=== PATIENT | female | born 1985 | race Caucasian/White ===

== ENCOUNTER 2021-06-01 20:34 | Outpatient (CLI) | payer BC | END 2021-06-01 22:42 | disposition home or self-care (01) | LOC: GENOP 20:34 | DX: O26.893 Other specified pregnancy related conditions, third trimester (principal); M54.9 Dorsalgia, unspecified; R53.83 Other fatigue; Z3A.37 37 weeks gestation of pregnancy; Z20.822 Contact with and (suspected) exposure to COVID-19 | CPT/HCPCS: 59025; 81001; 96360; 96361; U0002 ==

== ENCOUNTER → 2021-06-05 | Outpatient (CLI) | payer BC ==
[~2021-06-05] MED LIST: COLACE 100MG C100 MG PO; COLACE100 MG PO; HYDROCODON-ACE1 EAC6 PO; IBUPROFEN600 MG PO; PRENATAL VITAM1 EAC3 PO
== END ==
LOC: GENOP 22:43
DX: O36.8130 Decreased fetal movements, third trimester, not applicable or unspecified (principal); Z3A.37 37 weeks gestation of pregnancy
CPT/HCPCS: 59025

== ENCOUNTER 2021-06-14 13:11 | Outpatient (CLI) | payer BC ==
[2021-06-14 14:27] LABS: HEMOGLOBIN 12.5 gm/dl (12.3-15.3); RED BLOOD COUNT 4.1 M/UL (4.00-5.10)
[2021-06-15] MEDS ORDERED: PRENATAL VITAM1 EAC3 PO (11:29)
[2021-06-15] MEDS ORDERED: COLACE100 MG PO (11:30)
[2021-06-15] MEDS ORDERED: IBUPROFEN600 MG PO (13:13)
[2021-06-15] MEDS ORDERED: COLACE 100MG C100 MG PO (13:13)
[2021-06-15] MEDS ORDERED: HYDROCODON-ACE1 EAC6 PO (13:13)
== END 2021-06-14 15:22 | disposition home or self-care (01) ==
LOC: GENOP 13:11
PROVIDERS: Obstetrics & Gynecology
DX: Z01.812 Encounter for preprocedural laboratory examination (principal)
CPT/HCPCS: 36415; 81001; 85025

== ENCOUNTER 2021-06-15 07:30 | Inpatient (IN) | payer BC ==
[~2021-06-15] VITALS: Ht 165.1 cm; Wt 95.7 kg
[2021-06-15] MEDS ORDERED: PRENATAL VITAM1 EAC3 PO (11:29)
[2021-06-15] MEDS ORDERED: COLACE100 MG PO (11:30)
[2021-06-15] MEDS ORDERED: HYDROCODON-ACE1 EAC6 PO (13:13)
[2021-06-15] MEDS ORDERED: COLACE 100MG C100 MG PO (13:13)
[2021-06-15] MEDS ORDERED: IBUPROFEN600 MG PO (13:13)
== END 2021-06-16 16:32 | disposition home or self-care (01) | DRG 788 ==
LOC: OB 10:31
PROVIDERS: ADMIT Obstetrics & Gynecology
PROC: 4A1HXCZ Monitoring of Products of Conception, Cardiac Rate, External Approach (ICD-10-PCS; 2021-06-15)
PROC: 10D00Z1 Extraction of Products of Conception, Low, Open Approach (ICD-10-PCS; principal; 2021-06-15 09:05)
DX: O99.824 Streptococcus B carrier state complicating childbirth (principal); O36.63X0 Maternal care for excessive fetal growth, third trimester, not applicable or unspecified; Z20.822 Contact with and (suspected) exposure to COVID-19; O34.211 Maternal care for low transverse scar from previous cesarean delivery; Z3A.39 39 weeks gestation of pregnancy; Z37.0 Single live birth; Z56.0 Unemployment, unspecified
CPT/HCPCS: 36415; 81001; 82800; 85014; 85018; 85025; C9113; J0690; J1100; J1650; J1885; J2274; J2405; J2590; J3010; J7120